=== PATIENT | female | born 2000 | race African-American/Black ===

== ENCOUNTER 2018-12-10 12:03 | Emergency (ER) | payer OTHER ==
--- NOTE | 2018-12-10 12:10 | PDOC ---
Rapid Medical Evaluation Medical Evaluation: Allergies Allergy/AdvReac Type Severity Reaction Status Date / Time banana Allergy Intermediate Itching Verified 01/04/16 09:34 wheat bread Allergy Severe Difficulty Uncoded 01/04/16 09:34 Breathing kiwi Allergy Intermediate Itching Uncoded 01/04/16 09:34 pinapples Allergy Intermediate Itching Uncoded 01/04/16 09:34 I have performed a brief in-person evaluation of this patient. The patient presents with a chief complaint of: s/p fall at home 3 days ago; patient states fell, had seizure and LOC; event was witnessed by fiance; patient was sitting on bed, suddenly with body shaking, foaming from mouth and + head strike against table; no hx of seizures; PMH of asthma, mood disorderl denies drug use Pertinent physical exam findings: In NAD, well appearing, no obvious trauma noted, no head trauma noted I have ordered the following: Labs, UCG The patient will proceed to the ED for further evaluation. 12/10/18 12:06
[2018-12-10 12:24] VITALS: BP 103/56; PULSE 91; TEMP 98.5; BMI 31.8
[2018-12-10 13:10] LABS: EPI CELLS 3.1 /HPF (0-5/HPF); HYALINE CASTS 6 /lpf (0-8); URINE APPEARANCE CLOUDY; URINE BACTERIA 1088.8 /hpf (NEGATIVE); URINE BILIRUBIN NEGATIVE (NEGATIVE); URINE COLOR YELLOW; URINE GLUCOSE (UA) NEGATIVE (NEGATIVE); URINE KETONE NEGATIVE (NEGATIVE); URINE LEUK ESTERASE 2+ (NEGATIVE); URINE NITRITE POSITIVE (NEGATIVE); URINE PROTEIN 1+ (NEGATIVE); URINE RBC 3 /hpf (0-4); URINE UROBILINOGEN 0.2 mg/dL (0.2-1.0); URINE WBC 231 /hpf (0-5)
[2018-12-10 14:24] LABS: COCAINE, UR NEGATIVE ng/ml (CUTOFF=300); METHADONE, UR NEGATIVE ng/ml (CUTOFF=300); OPIATES, URI NEGATIVE ng/ml (CUTOFF=300); PHENCYCLIDINE,URINE NEGATIVE ng/ml (CUTOFF=25); URINE AMPHETAMINES NEGATIVE ng/ml (CUTOFF=500); URINE BARBITURATES NEGATIVE ng/ml (CUTOFF=200); URINE BENZODIAZEPINES NEGATIVE ng/ml (CUTOFF=200)
[2018-12-10] MEDS ORDERED: METOCLOPRAMIDE HCL INJECTION 10 MG/2 ML VIAL IVPB ONE (14:58)
[2018-12-10] MEDS ORDERED: ACETAMINOPHEN 1000 MG/100 ML VIAL (NON FORMULARY) IVPB ONE (14:58)
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
[2018-12-10] MEDS ORDERED: METOCLOPRAMIDE HCL INJECTION 10 MG/2 ML VIAL ONE (15:46)
[2018-12-10] MEDS ORDERED: ACETAMINOPHEN INJECTION 100 ML IVPB ONE (15:47)
[2018-12-10] MEDS ORDERED: NITROFURANTOIN MACROCRYSTAL 50 MG CAPSULE (FP) PO SCH (18:00)
[2018-12-10 18:25] LABS: BASO % 0.4 % (0-2.0); EOS % 1.5 % (0-4.5); HEMATOCRIT 30.2 % (32.4-45.2); HEMOGLOBIN 9.4 GM/dL (10.7-15.3); MCH 24.9 pg (25.7-33.7); MCHC 31.3 g/dl (32.0-36.0); MEAN CELL VOLUME 79.6 fl (80-96); MEAN PLT VOLUME 7.3 fl (7.5-11.1); MONO % 8.2 % (3.8-10.2); NEUT % 41.9 % (42.8-82.8); PLATELET COUNT 285 K/MM3 (134-434); RBC 3.79 M/mm3 (3.60-5.2); RDW 18.7 % (11.6-15.6); WHITE BLOOD COUNT 8.2 K/mm3 (4.0-10.0)
[2018-12-10 18:50] LABS: ALBUMIN 3.7 g/dl (3.4-5.0); BILIRUBIN,TOTAL 1.5 mg/dL (0.2-1); CALCIUM 8.9 mg/dL (8.5-10.1); CREATININE 0.7 mg/dL (0.55-1.3); POTASSIUM 3.4 mmol/L (3.5-5.1); TOT PROT 7.1 g/dl (6.4-8.2)
[2018-12-10] MEDS ORDERED: NITROFURANTOIN MACROCRYSTAL 50 MG CAPSULE (FP) ONE (19:02)
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
== END 2018-12-10 19:19 | disposition home or self-care (01) ==
LOC: JER 12:03
PROC: 3E033NZ Introduction of Analgesics, Hypnotics, Sedatives into Peripheral Vein, Percutaneous Approach (ICD-10-PCS; principal; 2018-12-10)
PROC: 3E033GC Introduction of Other Therapeutic Substance into Peripheral Vein, Percutaneous Approach (ICD-10-PCS; 2018-12-10)
DX: R56.9 Unspecified convulsions (principal); R55 Syncope and collapse; W01.198A Fall on same level from slipping, tripping and stumbling with subsequent striking against other object, initial encounter; Y93.89 Activity, other specified; Y92.038 Other place in apartment as the place of occurrence of the external cause; Y99.8 Other external cause status; N30.00 Acute cystitis without hematuria; F12.90 Cannabis use, unspecified, uncomplicated; Z91.018 Allergy to other foods
CPT/HCPCS: 36415; 70450-TC; 80053; 80307; 81003; 84703; 85025; 99282-25; J0131

== ENCOUNTER 2021-08-22 12:46 | Emergency (ER) | payer OTHER ==
[2021-08-22 13:09] VITALS: BP 101/66; PULSE 82; TEMP 98.6; BMI 16.9
[2021-08-22] MEDS ORDERED: KETOROLAC TROMETHAMINE 30 MG/1 ML VIAL IM ONE (16:45)
[2021-08-22] MEDS ORDERED: KETOROLAC TROMETHAMINE 30 MG/1 ML VIAL ONE (16:51)
== END 2021-08-22 19:25 | disposition home or self-care (01) ==
LOC: JERFT 12:46
PROC: 3E0233Z Introduction of Anti-inflammatory into Muscle, Percutaneous Approach (ICD-10-PCS; principal; 2021-08-22)
DX: R51.9 Headache, unspecified (principal); V43.62XA Car passenger injured in collision with other type car in traffic accident, initial encounter
CPT/HCPCS: 70450-TC; 70486-TC; 71046-TC-FY; 84703; 99285-25